=== PATIENT | male | born 1990 | race Caucasian/White ===

== ENCOUNTER 2020-05-01 07:40 | Emergency (ER) | payer OTHER ==
[~2020-05-01] VITALS: Ht 182.9 cm; Wt 99.8 kg
[2020-05-01 08:16] LABS: Source, Urine Voided
[2020-05-01 08:26] LABS: Bilirubin, Urine Neg (Neg); Blood, Urine Neg (Neg); Glucose Qualitative, Urine Neg (Neg); Ketones, Urine Neg (Neg); Leukocyte Esterase, Urine Neg (Neg); Nitrite, Urine Neg (Neg); Protein, Urine Neg (Neg); Specific Gravity, Urine 1.005 (1.003-1.022); Urobilinogen, Urine NORM (Normal); pH, Urine 6.5 (5.0-8.0)
[2020-05-01 08:31] LABS: Appearance, Urine Clear (Clear); Color, Urine Pale Yellow (P-Yellow)
[2020-05-01] MEDS ORDERED: IBUP400 PO (08:56)
[2020-05-01] MEDS ORDERED: Vibramycin100 MG PO (08:56)
[2020-05-03 01:07] LABS: CHLAMYDIA TRACHOMATIS, NAA Negative (Negative)
== END 2020-05-01 09:26 | disposition home or self-care (01) ==
LOC: ER 07:40
PROVIDERS: Emergency Medicine
DX: N45.1 Epididymitis (principal)
CPT/HCPCS: 76870; 81003; 87491; 87591; 96372; 99284-25; J0696